=== PATIENT | female | born 1955 | race Two or more races ===

== ENCOUNTER 2017-04-25 07:41 | Day surgery (SDC) | payer MEDICARE ==
[~2017-04-25] VITALS: Ht 152.4 cm; Wt 69.2 kg
[~2017-04-25 07:41] MED LIST: BUPIVACAINE/PF 0.5% ONE; HEPARIN 1,000 UNITS/ML, 10ML ONE; PROTAMINE SULFATE 10 MG/ML, 5ML ONE; THROMBIN 5,000 UNIT VIAL TP ONE
[2017-04-25] MEDS ORDERED: SODIUM CHLORIDE 0.9% 1,000 ML IV SCH (08:25)
[2017-04-25] MEDS ORDERED: SIMV20TA3 PO (08:30)
[2017-04-25] MEDS ORDERED: LOSA50TA6 PO (08:30)
[2017-04-25] MEDS ORDERED: AMLO10TA4 PO (08:30)
[2017-04-25] MEDS ORDERED: SEVE800T8 PO (08:30)
[2017-04-25] MEDS ORDERED: INSULIN 70/30 SQ (08:30)
[2017-04-25] MEDS ORDERED: INSU100V8 SQ (08:30)
[2017-04-25 08:31] VITALS: BP 195/72
== END 2017-04-25 08:50 | disposition home or self-care (01) ==
LOC: OUT 07:41
PROVIDERS: ATTEND Surgery Vascular Surgery
DX: N18.6 End stage renal disease (principal); Z53.9 Procedure and treatment not carried out, unspecified reason
CPT/HCPCS: 36415; 80047; 93005; J1644; J2720; J3490